=== PATIENT | male | born 1975 | race Caucasian/White ===

== ENCOUNTER 2020-04-03 03:38 | Inpatient (IN) | payer MEDICAID ==
[~2020-04-03] VITALS: Ht 182.9 cm; Wt 121.7 kg
[2020-04-03] MEDS ORDERED: cloNIDine HCL 0.1 MG TAB PO ONE (04:00)
[2020-04-03] MEDS ORDERED: ONDANSETRON HCL 4 MG/2 ML VIAL IV ONE (04:00)
[2020-04-03] MEDS ORDERED: SODIUM CHLORIDE 0.9% 1,000 ML IV ONE (04:00)
[2020-04-03] MEDS ORDERED: MORPHINE SULFATE 4 MG/ML SYR/VIAL IV ONE (04:00)
[2020-04-03] MEDS ORDERED: IOHEXOL 300 MG/ML 100ML BOTTLE IJ ONE (04:33)
[2020-04-03] MEDS ORDERED: HYDROmorphone HCL 2 MG/ML VL IV ONE ×2 (04:45→07:45)
[2020-04-03 04:57] LABS: Urine Bacteria FEW /hpf (None Seen); Urine Blood Negative /uL (Negative); Urine Mucus FEW (None Seen); Urine Specific Gravity 1.029 (1.001-1.035); Urine WBC 2 /hpf (0 - 3)
[2020-04-03 04:59] LABS: Basophils # (auto) 0.1 10 ^3/uL (0-0.2); Basophils % (auto) 0.5 % (0.0-2.0); Eosinophils # (auto) 0 10 ^3/uL (0-0.8); Eosinophils % (auto) 0.1 % (0.0-7.0); Hematocrit 50.7 % (41.0-53.0); Hemoglobin 17.7 g/dL (13.5-17.5); Lymphocytes # (auto) 1.2 10 ^3/uL (0.4-5.4); Lymphocytes % (auto) 8.6 % (10.0-50.0); Mean Corpuscular Hemoglobin 29.3 pg (28.0-32.0); Mean Corpuscular Volume 83.8 fL (80.0-100.0); Monocytes # (auto) 0.4 10 ^3/uL (0-1.3); Monocytes % (auto) 3.1 % (0.0-12.0); Neutrophils # (auto) 12.7 10 ^3/uL (1.6-8.6); Neutrophils % (auto) 87.7 % (37.0-80.0); Nucleated Red Blood Cells % 0.4 %; Platelet Count (auto) 250 10^3/uL (140-450); Red Blood Cells 6.06 10^6/uL (4.5-5.90); Red Cell Distribution Width 13.6 % (11.8-14.3); White Blood Cell 14.4 10^3/uL (4.4-10.8)
[2020-04-03] MEDS ORDERED: LABETALOL HCL 5 MG/ML 4ML SYRINGE IV ONE ×2 (05:00→06:00)
[2020-04-03 05:04] LABS: Alcohol, Urine < 3.0 mg/dL (0-5); Amphetamine Screen, Urine POSITIVE (NEGATIVE); Barbiturate Scree,Urine NEGATIVE (NEGATIVE); Benzodiazephine Screen, Urine NEGATIVE (NEGATIVE); Cannabinoid Screen, Urine NEGATIVE (NEGATIVE); Cocaine Screen, Urine NEGATIVE (NEGATIVE); Opiate Scree,Urine POSITIVE (NEGATIVE); Phencyclidine Screen, Urine NEGATIVE (NEGATIVE)
[2020-04-03 05:15] LABS: Albumin 3.9 g/dL (3.4-5.0); Magnesium 1.9 mg/dL (1.6-2.6); Potassium 3.4 mmol/L (3.5-5.1)
[2020-04-03 05:19] LABS: BUN/Creatinine Ratio 13.2; Bilirubin, Total 0.6 mg/dL (0.2-1.0); Total Protein 8.3 g/dL (6.4-8.2)
[2020-04-03] MEDS ORDERED: cloNIDine HCL 0.1 MG TAB PO PRN (08:30)
[2020-04-03] MEDS ORDERED: MORPHINE SULF INJ 2 MG/ML SYRINGE 1ML IV PRN (08:30)
[2020-04-03] MEDS ORDERED: cefTRIAXone 1GM/50ML D5W 50 ML IV ONE (08:30)
[2020-04-03] MEDS ORDERED: NITROGLYCERIN 0.4 MG SL TAB SL PRN (08:30)
[2020-04-03] MEDS ORDERED: amLODIPine BESYLATE 5 MG TAB PO ONE (08:30)
[2020-04-03] MEDS ORDERED: MORPHINE SULFATE 4 MG/ML SYR/VIAL ONE (10:28)
[2020-04-03] MEDS: MORPHINE SULFATE 4 MG/ML SYR/VIAL IV PRN ×3 (10:40→21:16)
[2020-04-03] MEDS: FAMOTIDINE 20 MG TAB PO SCH ×2 (10:40→22:00)
--- NOTE | 2020-04-03 11:00 | NUR ---
Telemetry admit from ER CAROLINEMATTY admitted to Telemetry unit after SBAR received. Patient oriented to CHRISTIE YUEN, RN primary RN, unit, room 275B, bed, and unit policies regarding patient care and visiting hours. Patient now on continuous telemetry monitoring, tele box # 59 and telemetry reading on arrival to unit is sinus rhythm 98. Patient weighed by bedscale and encouraged to call if they need something. All questions and concerns addressed, patient verbalized understanding. Bed in low and locked position, rails up x2, no-slip socks on. NPO status maintained, patient pending surgery today, call to pre-op indicating not time for surgery at this time. Patient stated he has not talked with surgeon yet regarding any procedure. Consents not signed at this time.
[2020-04-03 11:03] LABS: INR 1.07 (0.9-1.15); Partial Thromboplastin Time 26.5 sec (23.64-32.05)
--- NOTE | 2020-04-03 11:46 | NUR ---
DR RICH AT BEDSIDE NO NEW ORDERS
--- NOTE | 2020-04-03 12:26 | NUR ---
DR Brooke DE LEON AT BEDSIDE NEW ORDERS ADDED, AWAITING SURGERY
[2020-04-03 13:00] VITALS: BP 164/114
[2020-04-03] MEDS: LACTATED RINGER'S 1,000 ML IV SCH ×2 (13:02→22:45)
[2020-04-03] MEDS: LABETALOL HCL 5 MG/ML ML 20ML VIAL IV PRN ×2 (13:02→15:45)
[2020-04-03] MEDS: MORPHINE SULF INJ 2 MG/ML SYRINGE 1ML IV PRN (13:51)
[2020-04-03] MEDS: metroNIDAZOLE 500MG/100ML 100 ML IV SCH ×2 (14:06→22:00)
[2020-04-03 16:41] VITALS: BP 155/82
--- NOTE | 2020-04-03 16:54 | NUR ---
CONFIRMED SURGERY TOMORROW WITH DR GONZALEZ 9AM PER OR STAFF
--- NOTE | 2020-04-03 16:55 | NUR ---
PAGE TO DR Brooke SANTILLAN TO GIVE PATIENT CLEAR LIQUID DIET TONIGHT, NPO AT MIDNIGHT
--- NOTE | 2020-04-03 19:30 | NUR ---
Opening Shift Note Assumed care of patient, awake, AAOx4. No S/S of distress/SOB. On room air and ambulatory. Bed in lowest locked position, side rails up x2, call light within reach. Patient NPO after midnight for surgery tomorrow. Instructed on POC and to call for assist PRN, will continue to monitor for changes Q1hr and PRN.
[2020-04-03 21:58] VITALS: BP 157/103
[2020-04-04] MEDS: MORPHINE SULF INJ 2 MG/ML SYRINGE 1ML IV PRN ×2 (01:30→14:31)
[2020-04-04] MEDS: MORPHINE SULFATE 4 MG/ML SYR/VIAL IV PRN ×2 (04:49→19:55)
[2020-04-04] MEDS: LABETALOL HCL 5 MG/ML ML 20ML VIAL IV PRN (04:49)
[2020-04-04 04:58] VITALS: BP 165/104
[2020-04-04] MEDS: metroNIDAZOLE 500MG/100ML 100 ML IV SCH ×3 (06:00→21:57)
[2020-04-04 07:18] LABS: Potassium 4.2 mmol/L (3.5-5.1)
--- NOTE | 2020-04-04 07:30 | NUR ---
Opening Shift Note Assumed care of patient, awake and alert. No S/S of distress/SOB or pain on room air. Instructed on POC and to call for assist PRN, will continue to monitor for changes Q1hr and PRN. Bed in low and locked position, rails up x2, no-slip socks on. Instructed on surgery planned for today, patient unable to state whether the surgeon came in to speak with him, consents not signed.
[2020-04-04 07:35] LABS: Albumin 3.3 g/dL (3.4-5.0); BUN/Creatinine Ratio 8.8; Bilirubin, Total 1.4 mg/dL (0.2-1.0); Calcium 8.6 mg/dL (8.5-10.1); Total Protein 7.8 g/dL (6.4-8.2)
[2020-04-04 07:50] LABS: Basophils # (auto) 0.1 10 ^3/uL (0-0.2); Basophils % (auto) 0.3 % (0.0-2.0); Eosinophils # (auto) 0.1 10 ^3/uL (0-0.8); Eosinophils % (auto) 0.9 % (0.0-7.0); Hematocrit 52.1 % (41.0-53.0); Hemoglobin 17.9 g/dL (13.5-17.5); Lymphocytes # (auto) 1.6 10 ^3/uL (0.4-5.4); Lymphocytes % (auto) 10.3 % (10.0-50.0); Mean Corpuscular Hemoglobin 29.5 pg (28.0-32.0); Mean Corpuscular Hgb Conc. 34.3 g/dL (32.0-36.0); Mean Corpuscular Volume 86.1 fL (80.0-100.0); Monocytes # (auto) 1.7 10 ^3/uL (0-1.3); Monocytes % (auto) 10.9 % (0.0-12.0); Neutrophils # (auto) 12.3 10 ^3/uL (1.6-8.6); Neutrophils % (auto) 77.6 % (37.0-80.0); Nucleated Red Blood Cells % 0.1 %; Platelet Count (auto) 225 10^3/uL (140-450); Red Blood Cells 6.05 10^6/uL (4.5-5.90); Red Cell Distribution Width 13.9 % (11.8-14.3); White Blood Cell 15.9 10^3/uL (4.4-10.8)
[2020-04-04] MEDS: FAMOTIDINE 20 MG TAB PO SCH ×2 (08:17→21:57)
[2020-04-04] MEDS: cefTRIAXone 1GM/50ML D5W 50 ML IV SCH (08:17)
[2020-04-04] MEDS: amLODIPine BESYLATE 5 MG TAB PO SCH (08:17)
--- NOTE | 2020-04-04 08:30 | NUR ---
PATIENT OFF UNIT FOR PROCEDURE PRE-OP
[2020-04-04] MEDS ORDERED: POVIDONE IODINE 10 % TOPICAL OINT 30GM TOP ONE (08:49)
--- NOTE | 2020-04-04 09:10 | NUR ---
FAMILY CALL PASSWORD VERIFIED, PATIENTS MOTHER MAXINE UPDATED ON PLAN OF CARE.
[2020-04-04 09:33] VITALS: BP 163/95
[2020-04-04] MEDS ORDERED: ceFAZolin 1GM/50ML 50 ML IV ONE (10:22)
[2020-04-04] MEDS ORDERED: SUCCINYLCHOLINE CHLORIDE 20 MG/ML 10ML VIAL IV ONE (10:23)
[2020-04-04] MEDS ORDERED: LIDOCAINE 1% (LOCAL ANESTH.) PF 5ml SDV ONE (10:23)
[2020-04-04] MEDS ORDERED: MIDAZOLAM HCL 1MG/1ML-2 ML VIAL ONE (10:26)
[2020-04-04] MEDS ORDERED: METOCLOPRAMIDE HCL 5MG/ml INJ 2ml VIAL ONE (10:28)
[2020-04-04] MEDS ORDERED: ROCURONIUM 10MG/ML 10ML VIAL IV ONE (10:36)
[2020-04-04] MEDS ORDERED: fentaNYL CITRATE 100 MCG/2 ML VL ONE (10:36)
[2020-04-04] MEDS ORDERED: HYDROmorphone HCL 2 MG/ML VL IV PRN ×2 (10:45)
[2020-04-04] MEDS ORDERED: ONDANSETRON HCL 4 MG/2 ML VIAL IV PRN (10:45)
[2020-04-04] MEDS ORDERED: NALOXONE HCL 0.4 MG/ML VIAL IV PRN (10:45)
[2020-04-04] MEDS ORDERED: KETOROLAC TROMETH 30 MG/ML 1ML VIAL ONE (11:09)
[2020-04-04] MEDS ORDERED: NEOSTIGMINE 1 MG/ML INJ (10mg/10ML VIAL) ONE (11:10)
[2020-04-04] MEDS ORDERED: GLYCOPYRROLATE 0.2 MG/ML 1ML VIAL ONE (11:10)
--- NOTE | 2020-04-04 12:38 | NUR ---
PATIENT BACK ON UNIT ALERT AND ORIENTED, DRESSING TO CHARLENE SITE WITH SANGUENOUS DRAINAGE TO DRESSING, 2 OTHER MID ABDOMINAL INCISIONS CLEAN AND DRY. PATIENT NO COMPLAINTS OF PAIN, BED IN LOW AND LOCKED POSITION, RAILS UP X2, NO-SLIP SOCKS ON, BED ALARM ON.
--- NOTE | 2020-04-04 12:42 | NUR ---
DR Brooke DE LEON AT BEDSIDE NO NEW ORDERS
[2020-04-04] MEDS: LACTATED RINGER'S 1,000 ML IV SCH ×2 (14:22→18:33)
[2020-04-04 16:41] VITALS: BP 111/68
--- NOTE | 2020-04-04 19:09 | NUR ---
SHIFT CHANGE ENDORSED CARE TO NOC SHIFT NURSE VICENTA
--- NOTE | 2020-04-04 19:30 | NUR ---
Opening Shift Note Assumed care of patient, awake, AAOx4. No S/S of distress/SOB. Patient C/O pain 10/10 to ABD. On room air and ambulatory. Patient S/P surgery. CHARLENE drain patent and draining. Bed in lowest locked position, side rails up x2, call light within reach. Instructed on POC and to call for assist PRN, will continue to monitor for changes Q1hr and PRN.
[2020-04-04 21:00] VITALS: BP 122/76
[2020-04-05] MEDS: MORPHINE SULFATE 4 MG/ML SYR/VIAL IV PRN ×3 (00:57→09:30)
[2020-04-05 05:00] VITALS: BP 120/75
[2020-04-05] MEDS: LACTATED RINGER'S 1,000 ML IV SCH ×2 (05:02→14:45)
[2020-04-05] MEDS: metroNIDAZOLE 500MG/100ML 100 ML IV SCH ×3 (05:25→22:30)
--- NOTE | 2020-04-05 05:41 | NUR ---
CHARLENE DRAIN 75CC OUTPUT TOTAL ON THIS SHIFT
--- NOTE | 2020-04-05 07:07 | NUR ---
Opening Shift Note: Assumed care of patient, awake and alert. No S/S of distress/SOB. Pain level 9/10 at this time. Medications and pain management to be provided as ordered. Bed in lowest locked position, side rails up x 2, call light within reach. Patient instructed on POC and to call for assist PRN, will continue to monitor for changes Q1hr and PRN.
[2020-04-05 08:33] VITALS: BP 135/85
[2020-04-05 08:35] VITALS: BP 145/83
[2020-04-05] MEDS: FAMOTIDINE 20 MG TAB PO SCH ×2 (09:29→22:30)
[2020-04-05] MEDS: amLODIPine BESYLATE 5 MG TAB PO SCH (09:30)
[2020-04-05] MEDS: cefTRIAXone 1GM/50ML D5W 50 ML IV SCH (09:30)
--- NOTE | 2020-04-05 10:18 | NUR ---
DOCTOR ROUNDING: Dr. Elizabeth Merino at bedside. Discussed POC with patient. Patient verbally agreed.
--- NOTE | 2020-04-05 11:47 | NUR ---
Surgical incision assessed. Dressing CDI. abdominal binder place back on patient.
[2020-04-05] MEDS ORDERED: NICOTINE 21MG/24 HR TOPICAL PATCH TD ONE (12:30)
--- NOTE | 2020-04-05 12:38 | NUR ---
Nutrition Assessment Notes please see attached link for complete assessment Est energy needs ABW 101 [id number] kcals (20-23kcal/kg ABW) Est protein needs 101-111 (1-1.1g/kg ABW). Will reassess prn Addendum: 04/05/20 at [address] Amended: Links added.
[2020-04-05 13:00] VITALS: BP 144/78
[2020-04-05 16:58] VITALS: BP 160/73
[2020-04-05] MEDS: LABETALOL HCL 5 MG/ML ML 20ML VIAL IV PRN (18:07)
[2020-04-05] MEDS: MORPHINE SULF INJ 2 MG/ML SYRINGE 1ML IV PRN (18:20)
--- NOTE | 2020-04-05 18:37 | NUR ---
CHARLENE DRAIN: 25ML
--- NOTE | 2020-04-05 18:58 | NUR ---
CLOSING NOTE: Patient resting in bed. No S/S of distress or SOB at this time. Care endorsed to NOC RN.
--- NOTE | 2020-04-05 19:40 | NUR ---
Opening Shift Note Received report and assumed care of patient. Patient is asleep but awakens to voice. No signs or symptoms of distress noted. Instructed patient on plan of care and to call for assistance as needed. Will continue to monitor.
[2020-04-05 21:00] VITALS: BP 124/80
[2020-04-06] MEDS: LACTATED RINGER'S 1,000 ML IV SCH ×2 (00:46→10:45)
[2020-04-06 04:58] VITALS: BP 137/79
[2020-04-06 05:41] LABS: Basophils # (auto) 0 10 ^3/uL (0-0.2); Basophils % (auto) 0.4 % (0.0-2.0); Eosinophils # (auto) 0.2 10 ^3/uL (0-0.8); Eosinophils % (auto) 1.7 % (0.0-7.0); Hematocrit 48.2 % (41.0-53.0); Hemoglobin 16.5 g/dL (13.5-17.5); Lymphocytes % (auto) 18.2 % (10.0-50.0); Mean Corpuscular Hemoglobin 29.6 pg (28.0-32.0); Mean Corpuscular Hgb Conc. 34.2 g/dL (32.0-36.0); Mean Corpuscular Volume 86.6 fL (80.0-100.0); Neutrophils # (auto) 7.7 10 ^3/uL (1.6-8.6); Neutrophils % (auto) 70.7 % (37.0-80.0); Nucleated Red Blood Cells % 0.2 %; Platelet Count (auto) 207 10^3/uL (140-450); Red Blood Cells 5.57 10^6/uL (4.5-5.90); Red Cell Distribution Width 13.7 % (11.8-14.3); White Blood Cell 10.9 10^3/uL (4.4-10.8)
[2020-04-06] MEDS: metroNIDAZOLE 500MG/100ML 100 ML IV SCH ×2 (06:00→13:18)
[2020-04-06 06:08] LABS: Potassium 3.8 mmol/L (3.5-5.1)
[2020-04-06 06:17] LABS: Albumin 2.8 g/dL (3.4-5.0); BUN/Creatinine Ratio 15.1; Bilirubin, Total 0.9 mg/dL (0.2-1.0); Calcium 8.3 mg/dL (8.5-10.1); Total Protein 7.4 g/dL (6.4-8.2)
--- NOTE | 2020-04-06 06:50 | NUR ---
CHARLENE Drain CHARLENE drainage 50ml of serosanguineous fluid.
--- NOTE | 2020-04-06 06:53 | NUR ---
IV removal/ Medication Not Administered Patient's 18g IV to the left AC out. Catheter tip intact. Unable to insert IV at this time. Multiple attempts unsuccessful from different nurses. Unable to administer Flagy IV at this time. Will let patient rest at this time and will endorse to AM nurse to reattempt IV insertion.
--- NOTE | 2020-04-06 07:10 | NUR ---
Opening Shift Note: Assumed care of patient, awake and alert. No S/S of distress/SOB. Bed in lowest locked position, side rails up x 2, call light within reach. Patient refused IV start at this time. Patient educated on need for IV at this time. Patient still refused. Patient instructed on POC and to call for assist PRN, will continue to monitor for changes Q1hr and PRN.
[2020-04-06 09:00] VITALS: BP 136/76
[2020-04-06] MEDS: cefTRIAXone 1GM/50ML D5W 50 ML IV SCH (09:00)
[2020-04-06] MEDS: FAMOTIDINE 20 MG TAB PO SCH (09:34)
[2020-04-06] MEDS: amLODIPine BESYLATE 5 MG TAB PO SCH (09:35)
[2020-04-06] MEDS ORDERED: NICOTINE 21MG/24 HR TOPICAL PATCH TD SCH (10:00)
--- NOTE | 2020-04-06 10:04 | NUR ---
DR. RINCON: Dr. Merino at bedside. Discussed POC and discharge with patient.
[2020-04-06 13:00] VITALS: BP 140/81
[2020-04-06 13:21] VITALS: BP 136/76
--- NOTE | 2020-04-06 14:51 | NUR ---
Discharge instructions given as ordered. Encourage to follow up with PMD as instructed. All questions and concerns addressed. Patient verbalized understanding. Medication reconciliation form completed and copy given to patient. Patient had no iv. Telemetry unit returned to ICU. Patient taken to lobby via wheelchair with all personal belongings, accompanied by staff and family member. No distress noted at time of departure.
== END 2020-04-06 14:51 | disposition home or self-care (01) | DRG 263 ==
LOC: EDBD 03:38 → ER 03:48 → TELE 03:49 → TELE-WESTW 11:02
PROVIDERS: ADMIT Internal Medicine; ATTEND Family Medicine
PROC: 0FT44ZZ Resection of Gallbladder, Percutaneous Endoscopic Approach (ICD-10-PCS; principal; 2020-04-04 10:23)
DX: K80.00 Calculus of gallbladder with acute cholecystitis without obstruction (principal); K76.0 Fatty (change of) liver, not elsewhere classified; E11.9 Type 2 diabetes mellitus without complications; F15.10 Other stimulant abuse, uncomplicated; E66.9 Obesity, unspecified; Z68.36 Body mass index [BMI] 36.0-36.9, adult; I10 Essential (primary) hypertension; E86.0 Dehydration; I16.0 Hypertensive urgency; K21.9 Gastro-esophageal reflux disease without esophagitis; J44.9 Chronic obstructive pulmonary disease, unspecified
CPT/HCPCS: 36415; 71045; 74177; 78226; 80053; 80307; 81001; 82150; 82247; 83605; 83690; 83735; 85025; 85610; 85652; 85730; 86141; 86850; 86900; 86901; 93005; G0378; J0330; J0690; J0696; J1885; J2250; J2405; J3490